=== PATIENT | male | born 1965 | race African-American/Black ===

== ENCOUNTER 2018-11-29 01:35 | Emergency (ER) | payer OTHER ==
[~2018-11-29] VITALS: Ht 172.7 cm; Wt 74.8 kg
[2018-11-29] MEDS ORDERED: NKM (01:42)
[2018-11-29 01:45] VITALS: BP 124/65
--- NOTE | 2018-11-29 01:49 | NUR ---
ED Nurse Note: Patient walked into ED c/o of an irrititated eye, patient states that a debris got stuck on his right eye causing him to not be able to open it. 10/10 pain. small unknown object noted in eye. no bleeding noted. eye apprance is slightly pink. pupiles are round and reactive to light.
[2018-11-29] MEDS ORDERED: Fluorescein Strips RIGHT EYE ONE (02:00)
[2018-11-29] MEDS ORDERED: Tetracaine 0.5% Opth 4ml Soln RIGHT EYE ONE (02:00)
--- NOTE | 2018-11-29 02:06 | Emergency Room Report ---
History of Present Illness General Chief Complaint: Eye Problems Source: Patient Present Illness HPI Is a 53-year-old male with h/o lupus. He presents with chief complaint of right eye pain. He said around 9:00 tonight he felt something flew into his eye. It was itchy and painful. He try to get it out. He has been rubbing it. He then went to sleep. He woke up with the same symptom and tried again. Now is painful. He felt there is some foreign body there. No fever or chills. No nausea no vomiting. No other complaint. Pain is 9 out of 10. Worse with opening his eyes. Worse with lights. Allergies: Coded Allergies: No Known Allergies (Unverified , 11/29/18) Patient History Past Medical History: see triage record, old chart reviewed Past Surgical History: other Pertinent Family History: none Social History: Denies: smoking Immunizations: other Reviewed Nursing Documentation: PMH: Agreed; PSxH: Agreed Review of Systems Eye: Reports: eye pain, blurred vision ENT: Denies: ear pain, nose congestion, throat swelling Respiratory: Denies: cough, shortness of breath Cardiovascular: Denies: chest pain, palpitations Gastrointestinal: Denies: abdominal pain, diarrhea, nausea, vomiting Musculoskeletal: Denies: back pain, joint pain Skin: Denies: rash Neurological: Denies: headache, numbness Endocrine: Denies: increased thirst, increased urine Hematologic/Lymphatic: Denies: easy bruising All Other Systems: negative except mentioned in HPI Physical Exam Vital Signs Date Time Temp Pulse Resp B/P (MAP) Pulse Ox O2 Delivery O2 Flow Rate FiO2 11/29/18 01:38 98.4 66 18 124/65 98 Room Air vitals normal Sp02 EP Interpretation: reviewed, normal General Appearance: well appearing, no apparent distress, alert Head: normocephalic, atraumatic Eyes: right eye other - discharge. no FB. no fluorsceine uptake; bilateral eye PERRL, bilateral eye EOMI ENT: hearing grossly normal, normal pharynx Neck: full range of motion, supple, no meningismus Respiratory: chest non-tender, lungs clear, normal breath sounds Cardiovascular #1: regular rate, rhythm, no murmur Gastrointestinal: normal bowel sounds, non tender, no mass, no organomegaly, no bruit, non-distended Musculoskeletal: back normal, gait/station normal, normal range of motion Psychiatric: mood/affect normal Skin: warm/dry Medical Decision Making Diagnostic Impression: Primary Impression: Conjunctivitis Qualified Codes: H10.31 - Unspecified acute conjunctivitis, right eye ER Course Patient presents with foreign body sensation in his right eye. He has purulent discharge. No evidence of foreign body or perforation. No globe rupture. We' ll treat with antibiotic drops. Last Vital Signs Date Time Temp Pulse Resp B/P (MAP) Pulse Ox O2 Delivery O2 Flow Rate FiO2 11/29/18 01:45 98.4 72 18 124/65 98 Room Air Status: improved Disposition: HOME, SELF-CARE Condition: Stable Scripts Ibuprofen* (MOTRIN*) 600 Mg Tablet 600 MG ORAL THREE TIMES A DAY, #30 TAB 0 Refills Prov: Buster Anne MD 11/29/18 Polymyxin/Trimethoprim (Polytrim Eye Drops) 10 Ml Drops 2 DROP OPHTHALM THREE TIMES A DAY, #1 EA Instill in affected eye for 7 days Prov: Buster Anne MD 11/29/18 Referrals: Abdon Bailey MD (PCP) Patient Instructions: Bacterial Conjunctivitis, [id number] Additional Instructions: Treatment both eyes. Do not rub it. May clean with tear free shampoo (baby shampoo). Follow-up your doctor in 7 days. Return if symptom worsen. Buster Anne MD Nov 29, 2018 02:06
[2018-11-29 02:11] VITALS: BP 122/68
[2018-11-29 02:12] VITALS: BP 122/68
[2018-11-29] MEDS ORDERED: POLYTRIM OP SOL10 ML OPHTHALM (02:12)
[2018-11-29] MEDS ORDERED: IBUPROFEN600 MG ORAL (02:12)
--- NOTE | 2018-11-29 02:12 | NUR ---
ED Nurse Note: PT is Dc per ERMD order. pt is stable for DC. pt is alert and oriented times 4. pt left with all DC notes and prescriptions and belongings. pt is able to teach back DC notes. pt is instructed to follow up with primary MD as soon as possible. pt vital signs is stable. pt status, condition and vital signs reported to ERMD prior to DC. pt ID band removed.
--- NOTE | 2018-11-29 02:19 | NUR ---
ED Nurse Note: PT stated he has someone to pick him up to go home.
== END 2018-11-29 02:21 | disposition home or self-care (01) ==
LOC: EMR 01:51
DX: H10.9 Unspecified conjunctivitis (principal)
CPT/HCPCS: 99283